=== PATIENT | male | born 1955 | race Caucasian/White ===

== ENCOUNTER → 2019-09-25 | Outpatient (CLI) | payer MEDICARE, BC | LOC: RAD 08:28 | DX: M19.011 Primary osteoarthritis, right shoulder (principal) ==

== ENCOUNTER → 2020-03-25 | Outpatient (CLI) | payer MEDICARE, BC | LOC: RAD 09:20 | DX: M25.512 Pain in left shoulder (principal) ==

== ENCOUNTER → 2021-01-27 | Outpatient (CLI) | payer MEDICARE, BC | LOC: RAD 09:00 | DX: M25.511 Pain in right shoulder (principal); M79.671 Pain in right foot ==

== ENCOUNTER → 2022-06-01 | Outpatient (CLI) | payer MEDICARE, BC | LOC: RAD 07:30 | DX: M17.0 Bilateral primary osteoarthritis of knee (principal) ==